=== PATIENT | female | born 1990 ===

== ENCOUNTER 2017-03-05 13:30 | Inpatient (IN) | payer SELFPAY ==
[2017-03-05 14:35] VITALS: BMI 38.2
[2017-03-05] MEDS: Lactated Ringer's 1,000 ML IV SCH ×2 (14:40→15:31)
[2017-03-05 15:30] LABS: BASO # 0.1 K/uL (0.0-0.2); BASO % 0.8 % (0.0-2.0); EOS % 0.2 % (0.0-4.0); HEMATOCRIT 33.6 % (34.0-47.0); LYMPH # 3.5 K/uL (1.0-4.3); LYMPH % 26.1 % (20.0-40.0); MEAN CELL VOLUME 67.6 fl (81.0-99.0); MEAN PLATELET VOLUME 8.9 fl (7.2-11.7); MONO # 0.5 K/uL (0.0-0.8); MONO % 4.1 % (0.0-10.0); NEUT # 9.2 K/uL (1.8-7.0); NEUT % 68.8 % (50.0-75.0); WHITE BLOOD COUNT 13.4 K/uL (4.8-10.8)
[2017-03-05] MEDS ORDERED: Lactated Ringer's 1,000 ML IV SCH (15:30)
[2017-03-05] MEDS ORDERED: Bupivacaine HCl 0.25% PF (10 ml) Inj ONE (16:38)
[2017-03-05] MEDS ORDERED: Fentanyl/Bupivacaine HCl 250 ML EPI ONE (16:38)
[2017-03-05] MEDS ORDERED: Oxytocin 30 units/LR 500ML 500 ML IV ONE (18:04)
[2017-03-05] MEDS ORDERED: Lidocaine 1% Inj (20ml) ONE (18:04)
--- NOTE | 2017-03-05 20:09 | OBHP ---
Datetime: 03/05/2017 14:20 IP Adm Impression: Postterm, intrauterine ; Active labor; Intact Membranes IP Admit Plan: Admit to unit; Initiate labor protocol; Observation/Evaluation Admit Comment, IP Provider: 26 yr at 40w1d GA presents to [facility] with complaint of ctx's q2-4 min that began at 10am, pain scale 6/10. Patient reports getting routine care at [facility]. Denies va ginal bleeding, LOF. + movement. POBHx Pre-eclampsia in prior , 1x at full term. Patient has an anterior uterine fibroid measuring 4.4x4.2x3.6. Pt has no other concerns or complaints at this time. care/course: GBS neg, HIV neg, RPR neg, Gc/Ch neg/neg, HepBsAg neg, PPD Pos, CXR neg, Tda p give, Influenza given, possible alpha thal OBHx: in 2009: Pre-eclampsia in prior , 1x at full term PMHx: none PSurgHx: none SocHx: denies Etoh, drugs, smoking Meds: PNV, ASA, Iron PE: VSS Cardiac: S1 S2 normal, no murmurs/rubs/gallops Lungs: CTABL Abd: gravid, nontender Ext: trace pedal edema SVE: cervix dilated 4cm/ 100% effacement/ station 0 Monitoring: FHR 130 bpm, moderate variability 6-25 bpm, acceleration 15x15, no decels Bedside US: vertex A: IUP at 40w1d in active labor P: -Admit to labor and delivery -IV insertion, IVF, CBC, Type and Screen -Monitor labor progress -Continuous monitoring -Anesthesia consult Trini Bautista M.D. PGY 1 The patient was seen with the resident and I agree the note, the patient to be admitted and antici quinonez normal vaginal delivery Pelvic Type - PN: Adequate Extremities - PN: Normal Abdomen - PN: Normal Back - PN: Normal Lungs - PN: Normal Heart - PN: Normal Neurologic - PN: Normal HEENT - PN: Normal General - PN: Normal Presentation-Admit: Vertex FHR - Baseline A Provider: 130 Gestation - Est Wks by US: 40.1 EGA AdmitDate IP: 40.1 Vital Signs Provider: Reviewed; Within Normal Limits IP Chief Complaint: Uterine contractions NICHD Variability Prov Fetus A: Moderate 6-25bpm NICHD Accel Fetus A IP Provider: 15X15 FHR Category Provider Fetus A: Category I NICHD Decel Fetus A IP Provider: None Dilatation, Provider: 4 Effacement, Provider: 100 Station, Provider: 0 DTRs - PN: Normal
--- NOTE | 2017-03-05 20:13 | OBDS ---
MATERNAL INFORMATION Provider Comments: Delivered a live baby boy7:59 PM the baby was bulb suctioned on the perineum and transferred to maternal chest. The cord was clamped and cutand 3 vessels notedcord blood was obtained and sent to the lab. The placenta was delivered at 803 intact. There was a first-degree vaginal lace ration which was repaired with a 2-0 suture. The estimated blood loss was 200 mL the mother tolerated the procedure well the patient was a well baby nursery with Apgars of 9 and 9 weighing 8 pounds LABOR SUMMARY EDC: 03/04/2017 00:00 No. Babies in Womb: 1 Attempted: No Labor Anesthesia: Epidural LABOR INFORMATION Reason for Induction: Not Applicable Onset of Labor: 03/05/2017 10:00 Oxytocin: N/A Group B Beta Strep: Negative Antibiotics # of Doses: na Antibiotics Time of Last Dose: na Steroids Given: None Reason Steroids Not Administered: Not Applicable (Annotations: Data stored by [facility] on behalf of user) [facility] Membranes Rupture Method: Artificial Rupture of Membranes: 03/05/2017 17:27 Amniotic Fluid Color: Clear Amniotic Fluid Amount: Large Amniotic Fluid Odor: Normal VAGINAL DELIVERY Episiotomy: None Laceration Extension: First Degree Laceration Type: Vaginal Laceration Repair: Yes Laceration Repair Note: 2.0 rapide Sponge Count Correct: Yes Sharps Count Correct: Yes PRESENTATION/POSITION BABY A Presentation: Cephalic INFORMATION BABY A Gestational Age at Delivery: 38.6 Gestational Status: Term IDENTIFICATION/MEDS BABY A ID Band Number: [id number]
[2017-03-05] MEDS ORDERED: Oxycodone/Acetaminophen 5/325 mg Tab PO PRN ×2 (20:14)
[2017-03-05] MEDS ORDERED: Oxytocin 30 units/LR 500ML 500 ML IV SCH (20:15)
[2017-03-05] MEDS: Benzocaine/Menthol SPRAY TOP PRN (22:28)
[2017-03-06] MEDS: Multivitamin With Minerals Tab PO SCH (08:55)
[2017-03-06 09:57] LABS: HEMATOCRIT 29.1 % (34.0-47.0); MEAN CELL VOLUME 67.4 fl (81.0-99.0); MEAN CORPUSCULAR HEMOGLOBIN 20.5 pg (27.0-31.0); MEAN CORPUSCULAR HGB CONC 30.4 g/dL (33.0-37.0); RED CELL DISTRIBUTION WIDTH 16.8 % (11.5-14.5); WHITE BLOOD COUNT 12.3 K/uL (4.8-10.8)
--- NOTE | 2017-03-07 08:43 | OBPPN ---
Datetime: 03/07/2017 08:11 PP Pain Prov: Within normal limits PP Nausea Prov: Denies PP Flatus Prov: Yes PP BM Prov: Yes PP Abdomen/Uterus Prov: Normal PP Lochia Prov: Normal PP Extremities Prov: Normal PP C/S Incision Prov: Not Applicable PP Comments Phys Exam Prov: lochia minimal uterine fundus firm PP Impression Prov: Normal progression PP Plan Prov: Discharge PP Progress Note Prov: PPD#2 Patient doing well. Difficulty due to tongue tie, currently bottle feeding. Lochia m inimal. Pain is well controlled. o: as above a: PPD#2 s/p with first deg laceration p:-pain control -ambulation encouraged -rx for motrin given Stu Wick PGY1 IP PP Procedures: None Vital Signs Provider PP: Reviewed; Within Normal Limits Datetime: 03/06/2017 08:31 PP Lungs Prov: Normal
[2017-03-07] MEDS: Benzocaine/Menthol SPRAY TOP PRN (09:18)
[2017-03-07] MEDS: Multivitamin With Minerals Tab PO SCH (09:18)
--- NOTE | 2017-03-07 10:23 | OBPPN ---
Datetime: 03/07/2017 08:11 PP Progress Note Prov: PPD#2 Patient doing well. Difficulty due to tongue tie, currently bottle feeding. Lochia m inimal. Pain is well controlled. 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 Agree with note. Anemia - asymtptomatic MAHNDO
--- NOTE | 2017-03-07 10:25 | OBDCSUM ---
Datetime: 03/07/2017 10:22 Discharged to, Provider: Home Follow up at, Provider: OB provider Disch Instr Activity: Normal activity Disch Instr Diet: Regular Discharge Instructions, Provider: Routine instructions given Discharge Diagnosis, Provider: Term Delivered Follow up in weeks, Provider: 6w Disch Referrals: None Contraception discussed, Prov: Yes Disch Activity Restrictions: No sexual activity; Nothing in vagina - [place], tampons, douche
[2017-03-07] MEDS ORDERED: Pneumococcal 23-Valent Vaccine IM ONE (13:00)
== END 2017-03-07 17:20 | disposition home or self-care (01) | DRG 372 ==
LOC: H.EROB2 13:30 → H.L&D 14:35 → H.OB/GYN 21:58
PROVIDERS: ADMIT Obstetrics & Gynecology Gynecology; ATTEND Obstetrics & Gynecology Gynecology
PROC: 10E0XZZ Delivery of Products of Conception, External Approach (ICD-10-PCS; principal; 2017-03-05)
PROC: 0HQ9XZZ Repair Perineum Skin, External Approach (ICD-10-PCS; 2017-03-05)
PROC: 4A1HXCZ Monitoring of Products of Conception, Cardiac Rate, External Approach (ICD-10-PCS; 2017-03-05)
DX: O69.81X0 Labor and delivery complicated by cord around neck, without compression, not applicable or unspecified (principal); O14.94 Unspecified pre-eclampsia, complicating childbirth; D25.9 Leiomyoma of uterus, unspecified; O70.0 First degree perineal laceration during delivery; O34.13 Maternal care for benign tumor of corpus uteri, third trimester; O48.0 Post-term pregnancy; Z37.0 Single live birth; Z3A.40 40 weeks gestation of pregnancy

== ENCOUNTER 2017-11-09 21:08 | Emergency (ER) | payer SELFPAY ==
[2017-11-09 21:25] VITALS: BMI 34.0
[2017-11-09 21:27] VITALS: BP 105/68; PULSE 98; RESP 16; TEMP 97.8; O2SAT 100
--- NOTE | 2017-11-09 22:03 | ED PDOC ---
HPI: General Adult Time Seen by Provider: 11/09/17 21:08 Chief Complaint (Nursing): ENT Problem Chief Complaint (Provider): ENT Problem History Per: Patient History/Exam Limitations: no limitations Onset/Duration Of Symptoms: Days Current Symptoms Are (Timing): Still Present Additional Complaint(s): 27 y/o female presents to the emergency department with a complaint of a fever, sore throat, headache, neck pain, and ear pain bilaterally since yesterday night , 11/08/2017. Denies any sick contact or fever. Past Medical History Reviewed: Historical Data, Nursing Documentation, Vital Signs Vital Signs: Last Vital Signs Temp 97.8 F 11/09/17 21:25 Pulse 98 H 11/09/17 21:25 Resp 16 11/09/17 21:25 BP 105/68 11/09/17 21:25 Pulse Ox 100 11/09/17 22:04 - Medical History PMH: HTN - Family History Family History: States: Hypertension - Home Medications Home Medications: Ambulatory Orders Medication Instructions Recorded Vit#96/Ferrous Fum/FA 1 tab PO DAILY #100 tab 07/24/16 [ Tablet] Ferrous Sulfate [Feosol] 325 mg PO DAILY #30 tab 03/07/17 Ibuprofen [Motrin Tab] 600 mg PO Q6 PRN #30 tab 03/07/17 Amoxicillin 500 mg PO BID #14 tab 11/09/17 - Allergies Allergies/Adverse Reactions: Allergies Allergy/AdvReac Type Severity Reaction Status Date / Time No Known Allergies Allergy Verified 11/09/17 21:25 Review of Systems ROS Statement: Except As Marked, All Systems Reviewed And Found Negative (As per HPI, otherwise negative) Constitutional: Positive for: Fever ENT: Positive for: Ear Pain, Throat Pain Respiratory: Negative for: Cough Musculoskeletal: Positive for: Neck Pain Neurological: Positive for: Headache Physical Exam - Reviewed Nursing Documentation Reviewed: Yes Vital Signs Reviewed: Yes - Physical Exam Appears: Positive for: Non-toxic, No Acute Distress Head Exam: Positive for: ATRAUMATIC, NORMAL INSPECTION, NORMOCEPHALIC Skin: Positive for: Normal Color, Warm, Dry ENT: Positive for: Pharyngeal Erythema, Tonsillar Exudate (Bilaterally), Tonsillar Swelling (Bilaterally), Other (Mild swelling to the uvula). Negative for: Normal ENT Inspection Neurologic/Psych: Positive for: Alert, Oriented (x3) - ECG O2 Sat by Pulse Oximetry: 100 (RA) Pulse Ox Interpretation: Normal Medical Decision Making Medical Decision Making: Time: 2149 Initial impression: Throat infection Initial plan: --Urine Preg --Amoxicillin 500 mg PO --Dexamethasone 10 mg IM --Reevaluation PT meets centor criteria. dx: strep d/c amoxicillin Scribe Attestation: Documented by Nelda Menezes, acting as a scribe for Susan Pathak PA-C Provider Scribe Attestation: All medical record entries made by the Scribe were at my direction and personally dictated by me. I have reviewed the chart and agree that the record accurately reflects my personal performance of the history, physical exam, medical decision making, and the department course for this patient. I have also personally directed, reviewed, and agree with the discharge instructions and disposition. Disposition - Clinical Impression Clinical Impression: Streptococcal sore throat - Patient ED Disposition Is Patient to be Admitted: No Counseled Patient/Family Regarding: Diagnosis, Need For Followup, Rx Given - Disposition Disposition: Routine/Home Disposition Time: 22:29 Condition: STABLE Prescriptions: Amoxicillin 500 mg PO BID #14 tab Instructions: Strep Throat (ED) Forms: [facility] ED School/Work Excuse Print Language: [employer]
== END 2017-11-09 22:34 | disposition home or self-care (01) ==
LOC: H.ER 21:08
DX: J02.0 Streptococcal pharyngitis (principal); I10 Essential (primary) hypertension
CPT/HCPCS: 81025; 96372; 99282; J1100